=== PATIENT | male | born 1980 | race Caucasian/White ===

== ENCOUNTER 2016-12-21 21:37 | Emergency (ER) | payer MEDICAID, OTHER ==
[~2016-12-21] VITALS: Ht 182.9 cm; Wt 86.2 kg
[2016-12-21] MEDS ORDERED: HYDROCODONE/APAP 10/325MG 1 EA TABLET ONE (22:59)
[2016-12-21] MEDS ORDERED: TDAP [DIPH/PERTUSSIS/TET] 0.5 ML VIAL IM ONE ×2 (22:59→23:00)
[2016-12-21] MEDS ORDERED: HYDROCODONE/APAP 10/325MG 1 EA TABLET PO ONE (23:00)
[2016-12-22 00:21] VITALS: BP 126/80
== END 2016-12-22 00:21 ==
LOC: ER 21:39
DX: S83.91XA Sprain of unspecified site of right knee, initial encounter (principal); S50.01XA Contusion of right elbow, initial encounter; S80.211A Abrasion, right knee, initial encounter; F11.23 Opioid dependence with withdrawal; V89.9XXA Person injured in unspecified vehicle accident, initial encounter; Y93.89 Activity, other specified; Y92.89 Other specified places as the place of occurrence of the external cause; Y99.9 Unspecified external cause status
CPT/HCPCS: 71010; 72170; 73080; 73564; 90471; 90715; 99284; A4606; Z7610

== ENCOUNTER 2018-04-18 18:15 | Emergency (ER) | payer SELFPAY ==
[~2018-04-18] VITALS: Ht 182.9 cm; Wt 106.6 kg
[2018-04-18 18:15] VITALS: BP 130/84
[2018-04-18 19:44] LABS: BASOPHILS # (AUTO) 0.1 /CMM (0.0-0.2); BASOPHILS % (AUTO) 0.9 % (0.0-2.0); EOSINOPHILS % (AUTO) 3.6 % (0.0-6.0); HEMATOCRIT 38 % (39-51); HEMOGLOBIN 13.8 g/dL (13.5-17.5); LYMPHOCYTES # (AUTO) 2.5 /CMM (0.8-4.8); LYMPHOCYTES % (AUTO) 35.8 % (20.0-44.0); MEAN CORPUSCULAR HGB CONC 36 g/dl (31.0-36.0); MEAN CORPUSCULAR VOLUME 86 fL (80-96); MONOCYTES # (AUTO) 0.8 /CMM (0.1-1.30); MONOCYTES % (AUTO) 11.6 % (2.0-12.0); NEUTROPHILS # (AUTO) 3.3 /CMM (1.8-8.9); NEUTROPHILS % (AUTO) 48.1 % (43.0-81.0); PLATELET COUNT (AUTO) 166 /CMM (150-450); RDW COEFFICIENT OF VARIATION 11.1 (11.5-15.0); RED BLOOD CELL COUNT(AUTO) 4.45 MIL/uL (4.5-6.0)
[2018-04-18 19:53] LABS: CALCIUM, SERUM 8.3 mg/dL (8.5-10.1); CREATININE 0.9 mg/dL (0.6-1.3); POTASSIUM 3.5 mmol/L (3.5-5.1)
[2018-04-18 19:59] LABS: ALBUMIN 3.4 g/dL (3.4-5.0); BILIRUBIN,DIRECT 0.1 mg/dL (0.0-0.2); BILIRUBIN,TOTAL 0.5 mg/dL (0.2-1.0); TOTAL PROTEIN, SERUM 7.3 g/dL (6.4-8.2)
== END 2018-04-18 20:28 | disposition home or self-care (01) ==
LOC: ER 18:18
DX: R60.0 Localized edema (principal); F19.10 Other psychoactive substance abuse, uncomplicated; F17.200 Nicotine dependence, unspecified, uncomplicated
CPT/HCPCS: 36415; 80048-TC; 80076-TC; 85025-TC; A4606; Z7610